=== PATIENT | male | born 1960 | race Caucasian/White ===

== ENCOUNTER 2020-05-21 17:57 | Observation (INO) ==
[2020-05-21 18:36] LABS: Basophils % 0.5 %; Eosinophils # 0.4 K/mcL (0.0-0.6); Eosinophils % 5.2 %; Hematocrit 42.4 % (37.5-50.1); Hemoglobin 14.8 g/dL (12.9-16.9); Immature Granulocytes % 0.4 % (0-4); Lymphocytes # 2.4 K/mcL (0.6-4.6); Lymphocytes % 30.5 %; Mean Corpuscular HGB Conc 34.9 g/dL (31.6-35.5); Mean Corpuscular Hemoglobin 32.5 pg (28.0-33.3); Monocytes # 0.6 K/mcL (0.0-1.3); Monocytes % 7.5 %; Neutrophils # 4.4 K/mcL (1.6-8.9); Platelet Count 163 K/mcL (140-400); Red Blood Count 4.56 M/mcL (4.19-5.50); Red Cell Distribution Width 11.9 % (11.5-14.5); Segmented Neutrophils % 55.9 %; White Blood Count 7.8 K/mcL (4.3-11.1)
[2020-05-21 19:04] LABS: BUN/Creatinine Ratio 12 (6-26); Blood Urea Nitrogen 13 mg/dL (6-20); Calcium 9.1 mg/dL (8.6-10.3); Carbon Dioxide 28 mEq/L (23-29); Chloride 99 mEq/L (98-107); Glucose 122 mg/dL (70-105); Osmolality,Calculated 281 (280-300); Potassium 3.4 mEq/L (3.5-5.1); Sodium 135 mEq/L (136-145); Troponin I < 0.03 ng/mL (< 0.04); eGFR For African Americans > 60 (> 60); eGFR For Non-African Americans > 60 (> 60)
[2020-05-21] MEDS ORDERED: Aspirin 81 MG TAB.CHEW PO STA (19:37)
[2020-05-21] MEDS ORDERED: Naloxone 0.4 MG/ML INJ IVP PRN (21:19)
[2020-05-21] MEDS ORDERED: Melatonin 3 MG TABLET PO PRN (21:19)
[2020-05-21] MEDS ORDERED: Perflutren Lipid Microsphere 1.3 ML in 0.9 % Sodium Chloride 8.7 ML IVP PRN (21:22)
[2020-05-22 00:27] LABS: Basophils % 0.6 %; Eosinophils # 0.5 K/mcL (0.0-0.6); Eosinophils % 6.9 %; Hematocrit 40.8 % (37.5-50.1); Immature Granulocytes % 0.3 % (0-4); Lymphocytes # 2.6 K/mcL (0.6-4.6); Lymphocytes % 37.4 %; Mean Corpuscular HGB Conc 34.3 g/dL (31.6-35.5); Mean Corpuscular Volume 93.2 fL (83.0-100.0); Mean Platelet Volume 10.1 fL (9.4-12.4); Monocytes # 0.7 K/mcL (0.0-1.3); Monocytes % 10.7 %; Platelet Count 143 K/mcL (140-400); Red Blood Count 4.38 M/mcL (4.19-5.50); Red Cell Distribution Width 11.9 % (11.5-14.5); Segmented Neutrophils % 44.1 %; White Blood Count 6.8 K/mcL (4.3-11.1)
[2020-05-22 00:36] LABS: BUN/Creatinine Ratio 13 (6-26); Blood Urea Nitrogen 12 mg/dL (6-20); Calcium 8.5 mg/dL (8.6-10.3); Carbon Dioxide 29 mEq/L (23-29); Chloride 102 mEq/L (98-107); Chol/HDL Ratio 3.5 (0-4.9); Cholesterol 110 mg/dL (< 200); Glucose 136 mg/dL (70-105); HDL Cholesterol 31 mg/dL (40-59); LDL Cholesterol,Calculated 57 mg/dL (< 100); Osmolality,Calculated 284 (280-300); Potassium 3.5 mEq/L (3.5-5.1); Sodium 136 mEq/L (136-145); Triglycerides 110 mg/dL (< 150); eGFR For African Americans > 60 (> 60); eGFR For Non-African Americans > 60 (> 60)
[2020-05-22] MEDS ORDERED: Regadenoson 0.4 MG/5 ML SYRINGE IVP ONE (06:12)
[2020-05-22 09:34] LABS: Estimated Average Glucose 126 mg/dl
[2020-05-22] MEDS: Aspirin Enteric Coated 81 MG Tablet PO SCH (10:09)
[2020-05-22] MEDS: carvediloL 6.25 MG TABLET PO SCH ×2 (10:10→16:45)
[2020-05-22] MEDS: predniSONE 20 MG TABLET PO SCH (16:45)
[2020-05-22] MEDS: *HR* Heparin 5,000 UNIT/ML VIAL SQ SCH (16:45)
[2020-05-22] MEDS: Nitroglycerin 0.4 MG TAB.SUBL SL PRN ×2 (22:37→22:43)
[2020-05-22] MEDS ORDERED: Acetaminophen 325 MG TABLET PO PRN (22:55)
[2020-05-22] MEDS ORDERED: Morphine Sulfate 2 MG/ML SYRINGE IVP ONE (23:56)
[2020-05-23] MEDS ORDERED: *HR* Heparin 5,000 UNIT/ML VIAL IVP PRN ×2 (00:31)
[2020-05-23] MEDS ORDERED: *HR* Heparin 5,000 UNIT/ML VIAL IVP ONE (00:31)
[2020-05-23] MEDS ORDERED: Heparin 25,000UNIT/250ML 1/2NS 25,000 UNIT/250 ML IV.SOLN IVC SCH (00:45)
[2020-05-23 01:08] LABS: Hematocrit 42.6 % (37.5-50.1); Hemoglobin 14.7 g/dL (12.9-16.9); Mean Corpuscular HGB Conc 34.5 g/dL (31.6-35.5); Mean Corpuscular Hemoglobin 32.2 pg (28.0-33.3); Mean Corpuscular Volume 93.2 fL (83.0-100.0); Mean Platelet Volume 10.2 fL (9.4-12.4); Platelet Count 162 K/mcL (140-400); Red Blood Count 4.57 M/mcL (4.19-5.50); Red Cell Distribution Width 11.9 % (11.5-14.5); White Blood Count 7.3 K/mcL (4.3-11.1)
[2020-05-23] MEDS: *HR* Heparin 5,000 UNIT/ML VIAL SQ SCH ×2 (01:17→17:32)
[2020-05-23 01:18] LABS: Prothrombin Time 11.6 Seconds (9.4-12.1)
[2020-05-23] MEDS: Aspirin Enteric Coated 81 MG Tablet PO SCH (07:49)
[2020-05-23] MEDS: predniSONE 20 MG TABLET PO SCH (07:49)
[2020-05-23] MEDS: carvediloL 6.25 MG TABLET PO SCH ×2 (07:49→17:32)
[2020-05-23 10:33] LABS: BUN/Creatinine Ratio 14 (6-26); Blood Urea Nitrogen 13 mg/dL (6-20); Calcium 8.5 mg/dL (8.6-10.3); Carbon Dioxide 25 mEq/L (23-29); Chloride 104 mEq/L (98-107); Glucose 104 mg/dL (70-105); Osmolality,Calculated 282 (280-300); Potassium 4.1 mEq/L (3.5-5.1); Sodium 136 mEq/L (136-145); eGFR For African Americans > 60 (> 60); eGFR For Non-African Americans > 60 (> 60)
[2020-05-23] MEDS ORDERED: *HR* Heparin 10,000 UNIT/10 ML VIAL ONE (12:35)
[2020-05-23] MEDS ORDERED: Heparin 1,000 UNITS/500 mL 500 ML ONE (12:35)
[2020-05-23] MEDS ORDERED: 0.9 % Sodium Chloride 2,000 ML ONE (12:35)
[2020-05-23] MEDS ORDERED: ISOVUE-370 200 ML INFUS..BTL ONE ×2 (12:36→13:27)
[2020-05-23] MEDS ORDERED: Nitroglycerin 1,000 MCG/5 ML VIAL IV ONE (12:36)
[2020-05-23] MEDS ORDERED: methylPREDNISolone 125 MG/2 ML VIAL ONE (12:50)
[2020-05-23] MEDS ORDERED: *HR* Midazolam HCl 2 MG/2 ML VIAL ONE (12:50)
[2020-05-23] MEDS ORDERED: *HR* FentaNYL (PF) 100 MCG/2 ML VIAL ONE (12:50)
[2020-05-23] MEDS ORDERED: *HR* Adenosine 6 MG/2 ML VIAL IVP ONE (13:19)
[2020-05-23] MEDS ORDERED: *HR* Bivalirudin 250 MG VIAL IVC ONE ×2 (13:20→13:26)
[2020-05-23] MEDS ORDERED: *HR* Ticagrelor 90 MG TABLET ONE (13:43)
[2020-05-23] MEDS ORDERED: *HR* Atropine Sulfate 1 MG/10 ML SYRINGE ONE (17:39)
[2020-05-23] MEDS: *HR* Ticagrelor 90 MG TABLET PO SCH (20:32)
[2020-05-24 01:53] LABS: Basophils % 0.1 %; Hematocrit 44.2 % (37.5-50.1); Hemoglobin 14.9 g/dL (12.9-16.9); Immature Granulocytes % 0.8 % (0-4); Lymphocytes # 0.6 K/mcL (0.6-4.6); Lymphocytes % 4.4 %; Mean Corpuscular HGB Conc 33.7 g/dL (31.6-35.5); Mean Corpuscular Volume 94.8 fL (83.0-100.0); Mean Platelet Volume 11.1 fL (9.4-12.4); Monocytes # 0.5 K/mcL (0.0-1.3); Monocytes % 3.4 %; Platelet Count 167 K/mcL (140-400); Red Blood Count 4.66 M/mcL (4.19-5.50); Segmented Neutrophils % 91.3 %
[2020-05-24 01:56] LABS: White Blood Count 13.1 K/mcL (4.3-11.1)
[2020-05-24 02:11] LABS: BUN/Creatinine Ratio 15 (6-26); Blood Urea Nitrogen 15 mg/dL (6-20); Calcium 8.7 mg/dL (8.6-10.3); Carbon Dioxide 23 mEq/L (23-29); Chloride 104 mEq/L (98-107); Glucose 182 mg/dL (70-105); Osmolality,Calculated 283 (280-300); Potassium 3.8 mEq/L (3.5-5.1); Sodium 134 mEq/L (136-145); eGFR For African Americans > 60 (> 60); eGFR For Non-African Americans > 60 (> 60)
[2020-05-24] MEDS: *HR* Heparin 5,000 UNIT/ML VIAL SQ SCH (05:05)
[2020-05-24 07:00] VITALS: BP 139/87
[2020-05-24] MEDS: carvediloL 6.25 MG TABLET PO SCH (09:55)
[2020-05-24] MEDS: Aspirin Enteric Coated 81 MG Tablet PO SCH (09:56)
[2020-05-24] MEDS: *HR* Ticagrelor 90 MG TABLET PO SCH (09:56)
== END 2020-05-24 11:20 | disposition home or self-care (01) ==
LOC: EMEROOARM 17:57 → 3BNU 17:57 → SUATTDRO 20:14 → 3BNU 21:30 → 2NNU 05-23 14:18
PROVIDERS: ADMIT Internal Medicine; ATTEND Internal Medicine